=== PATIENT | female | born 1985 | race Caucasian/White ===

== ENCOUNTER 2016-07-30 22:09 | Emergency (ER) | payer MEDICAID ==
[2016-07-30 22:26] VITALS: BP 122/75
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
[2016-07-30 22:47] LABS: CHLORIDE,CL 110 mmol/L (98-115); SODIUM,NA 149 mmol/L (136-145)
[2016-07-30] MEDS ORDERED: Sodium Chloride 0.9% 2,000 ML IV ONE (23:32)
[2016-07-30] MEDS ORDERED: Nitrofurantoin Macrocrystal 50 MG Cap PO ONE (23:37)
[2016-07-31] MEDS ORDERED: Sodium Chloride 0.9% 1,000 ML ONE (00:29)
== END 2016-07-31 00:39 ==
LOC: KA.ED 22:09
DX: F10.120 Alcohol abuse with intoxication, uncomplicated (principal); N30.00 Acute cystitis without hematuria; F32.9 Major depressive disorder, single episode, unspecified; F41.9 Anxiety disorder, unspecified; J45.909 Unspecified asthma, uncomplicated; F17.210 Nicotine dependence, cigarettes, uncomplicated; Z88.0 Allergy status to penicillin; Z88.8 Allergy status to other drugs, medicaments and biological substances; Z79.899 Other long term (current) drug therapy
CPT/HCPCS: 36415; 80048; 80076; 80305; 81001; 85025; 87077; 87086; 96360; 99285; A9270; G0480; J7030; 87186